=== PATIENT | male | born 1945 | race African-American/Black ===

== ENCOUNTER 2016-09-02 06:48 | Day surgery (SDC) | payer BC ==
[2016-08-31 11:13] LABS: BASOPHILS 0 %; EOSINOPHILS 7.9 %; EOSINOPHILS ABSOLUTE 0.63 10/3/uL (0.0-0.53); HEMATOCRIT 42.6 % (40.0-51.0); HEMOGLOBIN 14.2 g/dL (13.6-17.8); IMMATURE GRANULOCYTES 0.3 %; IMMATURE GRANULOCYTES ABSOLUTE 0.02 10/3/uL (0.0-0.11); LYMPHOCYTES 26.7 %; LYMPHOCYTES ABSOLUTE 2.12 10/3/uL (0.67-4.30); MEAN CORPUS HGB CONC 33.3 g/dL (32.0-36.0); MEAN CORPUSCULAR HEMOGLOB 28.7 pg (26.0-34.0); MEAN PLATELET VOLUME 12.4 fL (9.2-13.0); MONOCYTES 7.8 %; MONOCYTES ABSOLUTE 0.62 10/3/uL (0.21-1.20); NEUTROPHILS 57.3 %; NEUTROPHILS ABSOLUTE 4.54 10/3/uL (2.02-8.40); PLATELET COUNT 209 10/3/uL (150-400); RBC DISTRIBUTION WIDTH 15.5 % (12.0-16.0); RED CELL COUNT 4.94 10/6/uL (4.7-6.1); WHITE BLOOD CELLS 7.9 10/3/uL (4.5-10.5)
[2016-08-31 11:14] LABS: MANUAL DIFF NO %; MEAN CORPUSCULAR VOLUME 86.2 fL (80-100)
[2016-08-31 11:56] LABS: A/G RATIO 0.8 (0.7-1.9); ALBUMIN 3.4 G/DL (3.5-5.0); CALCIUM, SERUM 9.3 MG/DL (8.5-10.4); CHLORIDE, SERUM 100 MMOL/L (96-112); CO2 (CARBON DIOXIDE) 29 MMOL/L (24-34); GLOBULIN 4.1 G/DL (2.5-4.1); POTASSIUM, SERUM 3.6 MMOL/L (3.5-5.3); SGOT(AST) 55 U/L (5-40); SGPT(ALT) 57 U/L (5-65); SODIUM, SERUM 140 MMOL/L (135-148); TOTAL BILIRUBIN 0.4 MG/DL (0-1.2); TOTAL PROTEIN 7.5 G/DL (6.0-8.5)
[2016-08-31 12:02] LABS: ALKALINE PHOSPHATASE 96 U/L (45-117); BUN (BLOOD UREA NITROGEN) 43 MG/DL (6-23); GFR AFRICAN AMERICAN 29 ML/MIN (>=60); GFR NON AFRICAN AMERICAN 25 ML/MIN (>=60); GLUCOSE, SERUM 228 MG/DL (60-99)
--- NOTE | ~2016-09-02 | OP ---
Record Of Operation [facility] [address] [place]. [address] NAME: VANESSA CANALES : 45 STATUS : [facility]#: [id number] AGE: 71 ADM/REG DATE : 09/02/16 MR#: [id number] REPORT SERV DATE: 09/02/16 DICTATED BY: MATEUS MCKINNEY DATE: 09/02/16 REPORT STATUS : Draft TRANSCRIBED BY: MODL DATE: 09/02/16 DATE OF PROCEDURE: 09/02/2016 PREOPERATIVE DIAGNOSIS: Elevated prostate-specific antigen. POSTOPERATIVE DIAGNOSIS: Elevated prostate-specific antigen. PROCEDURE: Transrectal ultrasound-guided needle biopsy of the prostate. ANESTHESIA: Monitored anesthesia care (MAC). SPECIMENS: Prostate x18, 3 right base, 3 right mid gland, 3 right apex, 3 left base, 3 left mid gland, 3 left apex. ESTIMATED BLOOD LOSS: Less than 5 mL. DRAINS: None. COMPLICATIONS: None. IMMEDIATE POSTOP: Satisfactory. DESCRIPTION OF PROCEDURE: The patient was brought into the cysto suite, placed in lateral decubitus position, given monitored anesthesia care by the Anesthesia Department. A transrectal ultrasound probe containing a needle biopsy guide was then passed by the global position system technician. The gland was imaged and measured. There were no suspicious areas noted. The gland measured 5.92 cm in length, 3.90 cm in height, 6.03 cm in width for a volume 72.77 mL. Then using a disposable biopsy gun, biopsies were obtained from the above- mentioned locations for total of 18 samples. At the close of procedure, an absorbable Gelfoam packing was passed per rectum, and the patient was awakened and sent to phase II recovery for postoperative care. There were no complications. /SHARDA Mateus Mckinney M.D. / [id number] CC: Andrew Gray M.D.
[~2016-09-02 06:48] MED LIST: ALLEGRA180 PO; APRES50 PO; ASA5GR PO; BYSTOLIC10 MG PO; BYSTOLIC20 MG PO; EDARBYCLOR 40-1 EAC1 PO; EDARBYCLOR 40-1 EACH PO; EXFORGE1 TA1 PO; FISH-EPA1000 MG PO; FOLIC PO; GLUCOPHAGE1000 MG PO; GLUCOTRO10 PO; HYT5 PO; INSPRA25 PO; KLONO1 PO; L20 PO; LANTUSCART SC; LIPITOR80 MG PO; LORTAB 5 PO; MULTIVITAMI1 PO; NOVOPEN; PRAVAC PO; PRILOSEC40 MG PO; RANITIDINE300 MG PO; SYMBICORT 160/41 INH INH; TRADJENTA5 MG PO; VITD PO; Z300 PO; ZYRTEC ALLGY10 MG PO
== END 2016-09-02 12:35 | disposition home or self-care (01) ==
LOC: SDC 06:48
PROVIDERS: Urology
PROC: 0VB00ZX Excision of Prostate, Open Approach, Diagnostic (ICD-10-PCS; 2016-09-02)
PROC: BV49ZZZ Ultrasonography of Prostate and Seminal Vesicles (ICD-10-PCS; principal; 2016-09-02 08:30)
DX: R97.20 Elevated prostate specific antigen [PSA] (principal); M10.9 Gout, unspecified; E78.5 Hyperlipidemia, unspecified; E11.9 Type 2 diabetes mellitus without complications; K21.9 Gastro-esophageal reflux disease without esophagitis; J45.909 Unspecified asthma, uncomplicated; G62.9 Polyneuropathy, unspecified; G47.33 Obstructive sleep apnea (adult) (pediatric); M19.90 Unspecified osteoarthritis, unspecified site; K44.9 Diaphragmatic hernia without obstruction or gangrene; F41.9 Anxiety disorder, unspecified; I50.9 Heart failure, unspecified; I11.0 Hypertensive heart disease with heart failure; E78.00 Pure hypercholesterolemia, unspecified; Z88.0 Allergy status to penicillin
CPT/HCPCS: 71020; 76872; 80053; 82962; 85025; 88305; 93005; J2250; J3010